=== PATIENT | female | born 1990 | race African-American/Black ===

== ENCOUNTER 2016-03-18 14:08 | Emergency (ER) | payer MEDICAID ==
--- NOTE | 2016-03-18 14:23 | ER Document Report ---
ED Medical Screen (RME) - General Stated Complaint: STRONG URINE ODOR,FREQUENT URINATION Time seen by provider: 14:22 Mode of Arrival: Ambulatory Information source: Patient Notes: 25-year-old female complaining of fishy vaginal smell with dysuria and frequency. She has had bacterial vaginosis in the past she is not sure if that' s what it is again. She's been with this partner for 6 months his ejaculate always ocampo her vagina. TRAVEL OUTSIDE OF THE [place] IN LAST 30 DAYS: No - Related Data Allergies/Adverse Reactions: No Known Allergies Allergy (Verified 12/01/15 08:21) Past Medical History Past Surgical History: Reports: Hx Cholecystectomy - Immunizations Immunizations up to date: Yes Hx Diphtheria, Pertussis, Tetanus Vaccination: Yes Physical Exam - Vital signs Vitals: Temp Pulse Resp BP Pulse Ox 98.3 F 76 14 117/66 99 03/18/16 14:19 03/18/16 14:19 03/18/16 14:19 03/18/16 14:19 03/18/16 14:19 Course - Vital Signs Vital signs: Temp Pulse Resp BP Pulse Ox 98.3 F 76 14 117/66 99 03/18/16 14:19 03/18/16 14:19 03/18/16 14:19 03/18/16 14:19 03/18/16 14:19
[2016-03-18 15:23] LABS: APPEARANCE,URINE SLIGHTLY-CLOUDY; BILIRUBIN,URINE NEGATIVE (NEGATIVE); GLUCOSE, URINE NEGATIVE (NEGATIVE); KETONES,URINE TRACE mg/dL (NEGATIVE); LEUKOCYTE ESTERASE,URINE NEGATIVE (NEGATIVE); NITRITE,URINE NEGATIVE (NEGATIVE); PROTEIN,URINE 30 mg/dL (NEGATIVE); URINE SPECIFIC GRAVITY 1.033
--- NOTE | 2016-03-18 15:27 | ER Document Report ---
ED GI/ - General Chief Complaint: Urinary Problem Stated Complaint: STRONG URINE ODOR,FREQUENT URINATION Time seen by provider: 15:24 Mode of Arrival: Ambulatory TRAVEL OUTSIDE OF THE [place] IN LAST 30 DAYS: No - HPI Patient complains to provider of: Dysuria - Pt. with recurrent UTI with c/o dysuria, frequency, and strong odor to urine. Denies vaginal d/c, abdominal pain - Related Data Allergies/Adverse Reactions: No Known Allergies Allergy (Verified 12/01/15 08:21) Past Medical History - General Information source: Patient - Social History Smoking Status: Never Smoker Cigarette use (# per day): No Chew tobacco use (# tins/day): No Smoking Education Provided: No Family History: DM, Hypertension, Malignancy Renal/ Medical History: Denies: Hx Peritoneal Dialysis Past Surgical History: Reports: Hx Cholecystectomy - Immunizations Immunizations up to date: Yes Hx Diphtheria, Pertussis, Tetanus Vaccination: Yes Review of Systems - Review of Systems Constitutional: No symptoms reported Cardiovascular: No symptoms reported Respiratory: No symptoms reported Gastrointestinal: No symptoms reported Genitourinary: See HPI, Dysuria, Frequency -: Yes All other systems reviewed and negative Physical Exam - Vital signs Vitals: Temp Pulse Resp BP Pulse Ox 98.3 F 76 14 117/66 99 03/18/16 14:19 03/18/16 14:19 03/18/16 14:19 03/18/16 14:19 03/18/16 14:19 - General General appearance: Appears well In distress: None - Respiratory Respiratory status: No respiratory distress Breath sounds: Normal - Cardiovascular Rhythm: Regular Heart sounds: Normal auscultation - Abdominal Inspection: Normal Tenderness: Nontender Course - Vital Signs Vital signs: Temp Pulse Resp BP Pulse Ox 98.3 F 76 14 117/66 99 03/18/16 14:20 03/18/16 14:20 03/18/16 14:20 03/18/16 14:20 03/18/16 14:20 - Laboratory Laboratory results interpreted by me: 03/18/16 15:00 Urine Protein 30 H Urine Ketones TRACE H Urine Blood MODERATE H Urine Urobilinogen 2.0 H Discharge - Discharge Clinical Impression: UTI (urinary tract infection) Qualifiers: Urinary tract infection type: acute cystitis Hematuria presence: without hematuria Qualified Code(s): N30.00 - Acute cystitis without hematuria Condition: Stable Disposition: HOME, SELF-CARE Instructions: Trimethoprim-Sulfa ([facility]), Urinary Tract Infection ([facility]) Additional Instructions: rest, continue current meds, return if worse Prescriptions: Sulfamethoxazole/Trimethoprim [Bactrim Ds Tablet] 1 each PO BID #10 tablet Referrals: DAYANA MARTINEZ MD [ACTIVE STAFF] - Follow up as needed
[2016-03-18 16:48] VITALS: BP 115/72
[2016-03-18 17:42] LABS: CHLAM PCR NOT DETECTED (NOT DETECT)
== END 2016-03-18 16:48 | disposition home or self-care (01) ==
LOC: ER 14:08
DX: N30.00 Acute cystitis without hematuria (principal); R30.0 Dysuria; Z87.440 Personal history of urinary (tract) infections; Z90.49 Acquired absence of other specified parts of digestive tract
CPT/HCPCS: 81001; 81025; 87086; 87491; 87591; 99283

== ENCOUNTER 2016-05-07 16:09 | Emergency (ER) | payer MEDICAID ==
[2016-05-07] MEDS ORDERED: ACETAMINOPHEN 325 MG TABLET PO ONE (16:46)
[2016-05-07] MEDS ORDERED: DIPHENHYDRAMINE HCL 25 MG CAPSULE PO ONE (16:46)
[2016-05-07 17:16] LABS: APPEARANCE,URINE CLEAR; BILIRUBIN,URINE NEGATIVE (NEGATIVE); GLUCOSE, URINE NEGATIVE (NEGATIVE); KETONES,URINE NEGATIVE (NEGATIVE); LEUKOCYTE ESTERASE,URINE NEGATIVE (NEGATIVE); NITRITE,URINE NEGATIVE (NEGATIVE); PROTEIN,URINE NEGATIVE (NEGATIVE); URINE SPECIFIC GRAVITY 1.025; UROBILINOGEN,URINE NEGATIVE mg/dL (<2.0)
[2016-05-07 18:58] LABS: CHLAM PCR DETECTED (NOT DETECT)
[2016-05-07] MEDS ORDERED: CEFTRIAXONE INJ 250 MG VIAL IM ONE (19:11)
[2016-05-07] MEDS ORDERED: LIDOCAINE 1% INJ-PF (10 MG/ML) 30 ML SDV INJ ONE (19:11)
[2016-05-07] MEDS ORDERED: AZITHROMYCIN 1 GM SUSP PACKET PO ONE (19:11)
[2016-05-07] MEDS ORDERED: METOCLOPRAMIDE HCL 10 MG TABLET PO ONE (19:12)
--- NOTE | 2016-05-07 19:16 | ER Document Report ---
HPI - HPI Pain Level: 0 Context: Patient is a 25-year-old female presents emergency Department complaining of suprapubic pain. Patient states that she cannot quite reticulate for how long its been there that she believes for over the past week. She denies any discharge, itching, burning, vaginal bleeding. She states she came here today to be evaluated for an STD She is concerned that her cheating on her. ROS positive for Mild headache denies any other past medical history - REPRODUCTIVE Reproductive: DENIES: : - DERM Skin Color: Normal Past Medical History - Social History Smoking Status: Never Smoker Frequency of alcohol use: None Drug Abuse: None Family History: DM, Hypertension, Malignancy Patient has suicidal ideation: No Patient has homicidal ideation: No Renal/ Medical History: Denies: Hx Peritoneal Dialysis Past Surgical History: Reports: Hx Cholecystectomy - Immunizations Immunizations up to date: Yes Hx Diphtheria, Pertussis, Tetanus Vaccination: Yes Vertical Provider Document - CONSTITUTIONAL Agree With Documented VS: Yes Exam Limitations: No Limitations General Appearance: WD/WN, No Apparent Distress - INFECTION CONTROL TRAVEL OUTSIDE OF THE [place] IN LAST 30 DAYS: No - HEENT HEENT: Atraumatic, Normal ENT Exam, Normocephalic, PERRLA - RESPIRATORY Respiratory: Breath Sounds Normal, No Respiratory Distress, Chest Non-Tender. negative: Rales, Rhonchi, Wheezing O2 Sat by Pulse Oximetry: 98 - CARDIOVASCULAR Cardiovascular: Regular Rate, Regular Rhythm, No Murmur - GI/ABDOMEN Gastrointestinal: Abdomen Soft, Abdomen Non-Tender, Abdomen Tender - Suprapubic tenderness, No Organomegaly, Normal Bowel Sounds. negative: Abdominal Guarding - REPRODUCTIVE Female Genitalia: Normal Inspection Notes: FEMALE : Normal external exam. No evidence of lesions, lacerations, bruising or vesicles. Speculum exam normal cervix closed. Evidence of vaginal discharge without odor. No evidence of lesions. No vaginal bleeding. Bimanual exam normal no cervical motion tenderness. No adnexal mass or adnexal tenderness. - NEURO Level of Consciousness: Awake, Alert, Appropriate Motor/Sensory: No Motor Deficit, No Sensory Deficit - DERM Integumentary: Warm, Dry, No Rash Course - Re-evaluation Re-evalutation: 05/07/16 19:27 Patient's urinalysis did not reveal any evidence of urinary tract infection, no evidence of bacterial vaginosis or Trichomonas. Patient did test positive for chlamydia. Treated with by mouth azithromycin and Rocephin. Discharged home. Instructions not having sex for the next 7 days and to have her partner evaluated at the health department. - Vital Signs Vital signs: Temp Pulse Resp BP Pulse Ox 98.4 F 78 12 126/77 H 98 05/07/16 16:22 05/07/16 16:22 05/07/16 16:22 05/07/16 16:22 05/07/16 16:22 - Laboratory Laboratory results interpreted by me: 05/07/16 05/07/16 16:52 17:15 Urine Blood SMALL H Chlamydia DNA (PCR) DETECTED H Discharge - Discharge Clinical Impression: Chlamydia Condition: Good Disposition: HOME, SELF-CARE Instructions: Chlamydia ([facility])
[2016-05-07 19:53] VITALS: BP 124/68
== END 2016-05-07 19:53 | disposition home or self-care (01) ==
LOC: ER 16:09
DX: A74.9 Chlamydial infection, unspecified (principal); R10.9 Unspecified abdominal pain
CPT/HCPCS: 99283; 96372; 87210; 81025; 81001; 87491; 87591; J3490 ×4; Q0144; J0696

== ENCOUNTER 2016-08-02 21:09 | Emergency (ER) | payer MEDICAID ==
[2016-08-02 21:22] VITALS: BP 130/87
[2016-08-02 22:18] LABS: APPEARANCE,URINE SLIGHTLY-CLOUDY; BILIRUBIN,URINE NEGATIVE (NEGATIVE); GLUCOSE, URINE NEGATIVE (NEGATIVE); KETONES,URINE NEGATIVE (NEGATIVE); LEUKOCYTE ESTERASE,URINE TRACE (NEGATIVE); NITRITE,URINE NEGATIVE (NEGATIVE); PROTEIN,URINE NEGATIVE (NEGATIVE); URINE SPECIFIC GRAVITY 1.028
[2016-08-02] MEDS ORDERED: AZITHROMYCIN 250 MG TABLET PO ONE (22:45)
[2016-08-02] MEDS ORDERED: CEFTRIAXONE INJ 250 MG VIAL IM ONE (22:45)
--- NOTE | 2016-08-02 22:46 | ER Document Report ---
ED GI/ - General Chief Complaint: STD Exposure Stated Complaint: POSSIBLE STD Time Seen by Provider: 08/02/16 21:40 Mode of Arrival: Ambulatory Information source: Patient TRAVEL OUTSIDE OF THE [place] IN LAST 30 DAYS: No - HPI Patient complains to provider of: Vaginal discharge Onset: This morning Timing/Duration: Sudden Quality of pain: No pain Sexual history: Unprotected intercourse Associated symptoms: Vaginal discharge Exacerbated by: Denies Relieved by: Denies Similar symptoms previously: Yes Recently seen / treated by doctor: No Notes: 08/03/16 00:23 Patient is a 26-year-old female who presents to the emergency room requesting sexually transmitted disease testing, states her boyfriend who she has had recent unprotected intercourse with, tested positive for chlamydia at the health department today and was currently being treated, reports some creamy vaginal discharge, but denies burning or itching, she does have a history of previous Chlamydia infection - Related Data Allergies/Adverse Reactions: No Known Allergies Allergy (Verified 05/07/16 16:22) Past Medical History - General Information source: Patient - Social History Smoking Status: Never Smoker Family History: DM, Hypertension, Malignancy Renal/ Medical History: Denies: Hx Peritoneal Dialysis Past Surgical History: Reports: Hx Cholecystectomy - Immunizations Immunizations up to date: Yes Hx Diphtheria, Pertussis, Tetanus Vaccination: Yes Review of Systems - Review of Systems Constitutional: No symptoms reported EENT: No symptoms reported Cardiovascular: No symptoms reported Respiratory: No symptoms reported Gastrointestinal: No symptoms reported Genitourinary: No symptoms reported Female Genitourinary: See HPI Musculoskeletal: No symptoms reported Skin: No symptoms reported Hematologic/Lymphatic: No symptoms reported Neurological/Psychological: No symptoms reported -: Yes All other systems reviewed and negative Physical Exam - Vital signs Vitals: Temp Pulse Resp BP Pulse Ox 98.1 F 73 20 130/87 H 100 08/02/16 21:19 08/02/16 21:19 08/02/16 21:19 08/02/16 21:19 08/02/16 21:19 - Notes Notes: - General General appearance: Appears well, Alert In distress: None - HEENT Head: Normocephalic, Atraumatic Eyes: Normal Conjunctiva: Normal Extraocular movements intact: Yes Eyelashes: Normal Pupils: PERRL - Respiratory Respiratory status: No respiratory distress - Cardiovascular Rhythm: Regular - Abdominal Inspection: Normal - Back Back: Normal - Extremities General upper extremity: Normal inspection General lower extremity: Normal inspection - Neurological Neuro grossly intact: Yes Orientation: AAOx4 [place] Coma Scale Eye Opening: Spontaneous [place] Coma Scale Verbal: Oriented [place] Coma Scale Motor: Obeys Commands [place] Coma Scale Total: 15 - Psychological Associated symptoms: Normal affect, Normal mood - Skin Skin Temperature: Warm Skin Moisture: Dry Skin Color: Normal Course - Re-evaluation Re-evalutation: 08/03/16 00:24 Patient with signs and symptoms consistent with sexually transmitted disease, boyfriend recently tested positive for chlamydia, she was provided with Rocephin and azithromycin in the emergency room, she did not want to wait in the emergency room for test results so a call was placed at 12:24 AM informing patient of her positive chlamydia result, she was advised to follow-up with OB/ [facility] or her primary care provider or return if any additional concerns, patient acknowledges understanding and agreement with this plan - Vital Signs Vital signs: Temp Pulse Resp BP Pulse Ox 98.1 F 73 20 130/87 H 100 08/02/16 21:19 08/02/16 21:19 08/02/16 21:19 08/02/16 21:19 08/02/16 21:19 - Laboratory Laboratory results interpreted by me: 08/02/16 08/02/16 21:56 21:56 Urine Urobilinogen 2.0 H Ur Leukocyte Esterase TRACE H Chlamydia DNA (PCR) DETECTED H Discharge - Discharge Clinical Impression: STD exposure Condition: Stable Disposition: HOME, SELF-CARE Instructions: Chlamydia ([facility]), Gonorrhea ([facility]) Additional Instructions: Follow up with your primary care provider in one to 2 days. Return to the emergency room immediately if symptoms worsen or any additional concerns.
[2016-08-02] MEDS ORDERED: LIDOCAINE 1% INJ-PF (10 MG/ML) 30 ML SDV ONE (22:50)
[2016-08-02 23:47] LABS: CHLAM PCR DETECTED (NOT DETECT)
== END 2016-08-02 23:10 | disposition home or self-care (01) ==
LOC: ER 21:09
DX: Z20.2 Contact with and (suspected) exposure to infections with a predominantly sexual mode of transmission (principal)
CPT/HCPCS: 99283; 96372; 81025; 81001; 87491; 87591; Q0144; J0696

== ENCOUNTER 2016-12-24 15:00 | Emergency (ER) | payer MEDICAID ==
[2016-12-24 15:12] VITALS: BP 126/75
[2016-12-24 16:19] LABS: APPEARANCE,URINE SLIGHTLY-CLOUDY; BILIRUBIN,URINE NEGATIVE (NEGATIVE); GLUCOSE, URINE NEGATIVE (NEGATIVE); KETONES,URINE NEGATIVE (NEGATIVE); LEUKOCYTE ESTERASE,URINE TRACE (NEGATIVE); NITRITE,URINE NEGATIVE (NEGATIVE); PROTEIN,URINE NEGATIVE (NEGATIVE); URINE SPECIFIC GRAVITY 1.033; UROBILINOGEN,URINE NEGATIVE mg/dL (<2.0)
[2016-12-24] MEDS ORDERED: CEPHALEXIN 500 MG CAPSULE PO ONE (16:51)
[2016-12-24] MEDS ORDERED: PHENAZOPYRIDINE HCL 100 MG TABLET PO ONE (16:51)
--- NOTE | 2016-12-24 16:53 | ER Document Report ---
HPI - HPI Patient complains to provider of: UTI symptoms Onset: Other - 3 days Onset/Duration: Persistent Quality of pain: Burning Pain Level: 1 Context: Patient complains of dysuria and frequency for the past 3 days. Patient denies any abdominal pain, fever or back pain. Patient denies any nausea or vomiting. Patient denies any concerns about . Patient denies any concerns about possible sexually transmitted infection Associated Symptoms: Other - Frequency, dysuria. denies: Fever Exacerbated by: Denies Relieved by: Denies Similar symptoms previously: Yes Recently seen / treated by doctor: No - ROS ROS below otherwise negative: Yes Systems Reviewed and Negative: Yes All other systems reviewed and negative - CONSTITUTIONAL Constitutional: DENIES: Fever - GASTROINTESTINAL Gastrointestinal: DENIES: Abdominal Pain, Nausea, Patient vomiting - URINARY Urinary: REPORTS: Dysuria, Frequency - REPRODUCTIVE Reproductive: DENIES: : - MUSCULOSKELETAL Musculoskeletal: DENIES: Back Pain - DERM Skin Color: Normal Skin Problems: None Past Medical History - General Information source: Patient - Social History Smoking Status: Never Smoker Frequency of alcohol use: None Drug Abuse: None Occupation: [employer] Family History: DM, Hypertension, Malignancy - Medical History Medical History: Negative Renal/ Medical History: Denies: Hx Peritoneal Dialysis Past Surgical History: Reports: Hx Cholecystectomy - Immunizations Immunizations up to date: Yes Hx Diphtheria, Pertussis, Tetanus Vaccination: Yes Vertical Provider Document - CONSTITUTIONAL Agree With Documented VS: Yes Exam Limitations: No Limitations General Appearance: WD/WN, No Apparent Distress - INFECTION CONTROL TRAVEL OUTSIDE OF THE [place] IN LAST 30 DAYS: No - HEENT HEENT: Atraumatic, Normocephalic - NECK Neck: Normal Inspection - RESPIRATORY Respiratory: Breath Sounds Normal, No Respiratory Distress O2 Sat by Pulse Oximetry: 99 - CARDIOVASCULAR Cardiovascular: Regular Rate, Regular Rhythm - GI/ABDOMEN Gastrointestinal: Abdomen Soft, Abdomen Non-Tender, No Organomegaly, Normal Bowel Sounds - BACK Back: Normal Inspection. negative: CVA Tenderness-Right, CVA Tenderness-Left - MUSCULOSKELETAL/EXTREMETIES Musculoskeletal/Extremeties: MAEW - NEURO Level of Consciousness: Awake, Alert, Appropriate Motor/Sensory: No Motor Deficit - DERM Integumentary: Warm, Dry, No Rash Course - Re-evaluation Re-evalutation: 12/24/16 16:52 Offered patient STD testing, patient declines needing any STD testing and does not have any concerns regarding this. - Vital Signs Vital signs: Temp Pulse Resp BP Pulse Ox 97.6 F 84 17 126/75 H 99 12/24/16 15:11 12/24/16 15:11 12/24/16 15:11 12/24/16 15:11 12/24/16 15:11 - Laboratory Laboratory results interpreted by me: 12/24/16 15:51 Urine Blood SMALL H Ur Leukocyte Esterase TRACE H Discharge - Discharge Clinical Impression: UTI (urinary tract infection) Qualifiers: Urinary tract infection type: site unspecified Hematuria presence: with hematuria Qualified Code(s): N39.0 - Urinary tract infection, site not specified Condition: Stable Disposition: HOME, SELF-CARE Instructions: Cephalexin ([facility]), Urinary Anesthetic Agent ([facility]), Urinary Tract Infection ([facility]) Additional Instructions: Return immediately for any new or worsening symptoms Followup with your primary care provider, call tomorrow to make a followup appointment Prescriptions: Cephalexin Monohydrate [Keflex 500 mg Capsule] 500 mg PO Q6H 5 Days capsule Phenazopyridine HCl [Pyridium 200 mg Tablet] 200 mg PO TID #15 tablet Referrals: [facility] [Provider Group] - Follow up as needed
== END 2016-12-24 17:20 | disposition home or self-care (01) ==
LOC: ER 15:00
DX: N39.0 Urinary tract infection, site not specified (principal); Z90.49 Acquired absence of other specified parts of digestive tract
CPT/HCPCS: 99283; 81001; J3490

== ENCOUNTER 2017-01-23 21:34 | Emergency (ER) | payer MEDICAID ==
[2017-01-23] MEDS ORDERED: AZITHROMYCIN 250 MG TABLET PO ONE (23:23)
[2017-01-23] MEDS ORDERED: LIDOCAINE 1% INJ-PF (10 MG/ML) 30 ML SDV INFIL ONE (23:23)
[2017-01-23] MEDS ORDERED: CEFTRIAXONE INJ 250 MG VIAL IM ONE (23:23)
--- NOTE | 2017-01-23 23:27 | ER Document Report ---
ED General - General TRAVEL OUTSIDE OF THE [place] IN LAST 30 DAYS: No - General Chief Complaint: STD Exposure Stated Complaint: POSSIBLE STD Time Seen by Provider: 01/23/17 22:54 Notes: Patient is a 26-year-old female without past medical history who presents with concerns of her DISPENSER OPERATOR contacting her and telling her that she had a positive chlamydia test. She is here requesting treatment. She denies any symptoms or concerns. She states she had the testing done as a routine physical examination. (ADRIANA GALLOWAY) - Related Data Allergies/Adverse Reactions: No Known Allergies Allergy (Verified 05/07/16 16:22) Past Medical History - General Information source: Patient - Social History Smoking Status: Never Smoker Frequency of alcohol use: None Drug Abuse: None Lives with: Spouse/Significant other Family History: DM, Hypertension, Malignancy Patient has suicidal ideation: No Patient has homicidal ideation: No Renal/ Medical History: Denies: Hx Peritoneal Dialysis Past Surgical History: Reports: Hx Cholecystectomy - Immunizations Immunizations up to date: Yes Hx Diphtheria, Pertussis, Tetanus Vaccination: Yes Review of Systems - Review of Systems Notes: Constitutional: Negative for fever. HENT: Negative for sore throat. Eyes: Negative for visual changes. Cardiovascular: Negative for chest pain. Respiratory: Negative for shortness of breath. Gastrointestinal: Negative for abdominal pain, vomiting or diarrhea. Genitourinary: Negative for dysuria. Musculoskeletal: Negative for back pain. Skin: Negative for rash. Neurological: Negative for headaches, weakness or numbness. 10 point ROS negative except as marked above and in HPI. (ADRIANA GALLOWAY) Physical Exam - Vital signs Interpretation: Normal - Vital signs Vitals: Temp Pulse Resp BP Pulse Ox 99 F 75 16 124/70 98 01/23/17 21:53 01/23/17 21:53 01/23/17 21:53 01/23/17 21:53 01/23/17 21:53 Notes: PHYSICAL EXAMINATION: GENERAL: Well-appearing, well-nourished and in no acute distress. HEAD: Atraumatic, normocephalic. EYES: sclera anicteric, conjunctiva are normal. ENT: Moist mucous membranes. NECK: Normal range of motion LUNGS: Normal work of breathing HEART: 2+ radial pulses bilaterally EXTREMITIES: no pitting or edema. No cyanosis. NEUROLOGICAL: No focal neurological deficits. Moves all extremities spontaneously and on command. PSYCH: Normal mood, normal affect. SKIN: Warm, Dry, normal turgor, no rashes or lesions noted. (ADRIANA GALLOWAY) Course - Re-evaluation Re-evalutation: 01/23/17 23:26 Patient presents after being contacted by her DISPENSER OPERATOR informing her that she had tested positive for chlamydia. She denies any active symptoms. No additional concerns. Will treat with ceftriaxone and azithromycin for empiric coverage of both gonorrhea and Chlamydia. At this time will discharge with return precautions and follow-up recommendations. Verbal discharge instructions given a the bedside and opportunity for questions given. Medication warnings reviewed. Patient is in agreement with this plan and has verbalized understanding of return precautions and the need for primary care follow-up in the next 24-72 hours. (ADRIANA GALLOWAY) - Vital Signs Vital signs: Temp Pulse Resp BP Pulse Ox 97.2 F 96 16 125/85 100 01/24/17 00:33 01/24/17 00:33 01/24/17 00:33 01/24/17 00:33 01/24/17 00:33 Discharge - Discharge Clinical Impression: STD (female), Chlamydia Condition: Good Disposition: HOME, SELF-CARE Additional Instructions: You need to use protection every time you have sex. Failure to do so can result in transmission of infections or unintended . You have been treated for an sexually transmitted infection (STI) today. All of your partners should be tested and treated as they are also likely to be infected. Please return if you develop abdominal pain, fever, persistent vomiting, or any other symptoms that are concerning to you. Referrals: KASIA LIMA MD [Primary Care Provider] - Follow up as needed
[2017-01-24 00:34] VITALS: BP 125/85
== END 2017-01-24 00:36 | disposition home or self-care (01) ==
LOC: ER 21:34
DX: A56.8 Sexually transmitted chlamydial infection of other sites (principal)
CPT/HCPCS: 99283; Q0144; J3490; J0696

== ENCOUNTER 2017-01-31 09:47 | Emergency (ER) | payer MEDICAID ==
[2017-01-31] MEDS ORDERED: CEFTRIAXONE INJ 250 MG VIAL IM ONE (10:14)
[2017-01-31] MEDS ORDERED: LIDOCAINE 1% INJ-PF (10 MG/ML) 30 ML SDV INJ ONE (10:14)
[2017-01-31] MEDS ORDERED: AZITHROMYCIN 250 MG TABLET PO ONE (10:14)
--- NOTE | 2017-01-31 10:18 | ER Document Report ---
HPI - HPI Pain Level: 0 Notes: Patient is a 26-year-old female who presents to the ED complaining of vaginal discharge that does not burn, itch, or smell. Patient was treated for chlamydia about 8 days ago and is wondering about resolution status post treatment. Patient states that she has not been sexually active since the last testing and treatment was performed. She is still eating and drinking without difficulties. She is urinating normally and having normal bowel movements. She denies any drug allergies. Patient admits to smoking but denies IV drug use. She has no other concerns or complaints at this time. Denies any headache , fever, URI, sore throat, chest pain, palpitations, syncope, cough, shortness of breath, wheeze, dyspnea, abdominal pain, nausea/vomiting/diarrhea, urinary retention, dysuria, hematuria, vaginal bleeding/cramping, loss of control of bowel or bladder, numbness/tingling, saddle anesthesia, muscle paralysis/ weakness, or rash. - ROS Notes: REVIEW OF SYSTEMS: CONSTITUTIONAL : Denies fever, chills, or sweats. Denies recent illness. EENT: Denies eye, ear, throat, or mouth pain or symptoms. Denies nasal or sinus congestion or discharge. Denies throat, tongue, or mouth swelling or difficulty swallowing. CARDIOVASCULAR: Denies chest pain. Denies palpitations or racing or irregular heart beat. RESPIRATORY: Denies cough, cold, or chest congestion. Denies shortness of breath, difficulty breathing, or wheezing. GASTROINTESTINAL: Denies abdominal pain or distention. Denies nausea, vomiting , or diarrhea. Denies blood in vomitus, stools, or per rectum. Denies black, tarry stools. Denies constipation. GENITOURINARY: Denies difficulty urinating, painful urination, burning, frequency, blood in urine, or discharge. FEMALE GENITOURINARY: see hpi MUSCULOSKELETAL: Denies back or neck pain or stiffness. Denies joint pain or swelling. SKIN: Denies rash, lesions or sores. NEUROLOGICAL: Denies dizziness or lightheadedness. Denies headache. Denies problems with gait or speech. Denies sensory loss, numbness, or tingling. Denies seizures. ALL OTHER SYSTEMS REVIEWED AND NEGATIVE. Dictation was performed using [employer] recognition software - CONSTITUTIONAL Constitutional: DENIES: Fever, Chills - EENT EENT: DENIES: Sore Throat, Ear Pain, Eye problems - NEURO Neurology: DENIES: Headache, Weakness, Vision blurred, Dizzinesss / Vertigo - CARDIOVASCULAR Cardiovascular: DENIES: Chest pain - RESPIRATORY Respiratory: DENIES: Trouble Breathing, Coughing - GASTROINTESTINAL Gastrointestinal: DENIES: Abdominal Pain, Black / Bloody Stools - URINARY Urinary: DENIES: Dysuria, Urgency, Frequency - REPRODUCTIVE Reproductive: REPORTS: Abnormal bleeding / discharge. DENIES: :, Postmenopausal - MUSCULOSKELETAL Musculoskeletal: DENIES: Extremity pain Past Medical History - Social History Smoking Status: Current Every Day Smoker Chew tobacco use (# tins/day): No Frequency of alcohol use: None Drug Abuse: None Family History: DM, Hypertension, Malignancy Patient has suicidal ideation: No Patient has homicidal ideation: No Renal/ Medical History: Denies: Hx Peritoneal Dialysis Past Surgical History: Reports: Hx Cholecystectomy - Immunizations Immunizations up to date: Yes Hx Diphtheria, Pertussis, Tetanus Vaccination: Yes Vertical Provider Document - CONSTITUTIONAL Agree With Documented VS: Yes Notes: PHYSICAL EXAMINATION: GENERAL: Well-appearing, well-nourished and in no acute distress. Eye: no redness/discharge. LUNGS: Breath sounds clear to auscultation bilaterally and equal. No wheezes rales or rhonchi. HEART: Regular rate and rhythm without murmurs ABDOMEN: Soft, nontender, nondistended abdomen. No guarding, no rebound. No masses appreciated. Normal bowel sounds present. CVA tenderness negative bilaterally. Female : No inguinal adenopathy. External genitalia without erythema, lesions , or masses. Vaginal mucosa pink. Cervix parous, pink, and with scant to no discharge. Uterus is smooth. No adnexal tenderness. Extremities: No cyanosis/clubbing/edema b/l. Peripheral pulses 2+. Capillary refill less than 3 seconds. NEUROLOGICAL: Normal speech, normal gait. Normal sensory, motor exams PSYCH: Normal mood, normal affect. SKIN: Warm, Dry, normal turgor, no rashes or lesions noted. - INFECTION CONTROL TRAVEL OUTSIDE OF THE [place] IN LAST 30 DAYS: No - RESPIRATORY O2 Sat by Pulse Oximetry: 98 Course - Re-evaluation Re-evalutation: 01/31/17 11:15 Patient is an afebrile, well-hydrated, 26-year-old female who presents the ED with subjective vaginal discharge and previous exposure to an STD. Vitals are stable. PE is otherwise unremarkable. See pelvic exam. Wet mount unremarkable. Chlamydia and gonorrhea tests are pending. Zithromax and Rocephin were given today. Urine HCG pending. Low suspicion for any acute abdomen/pelvic at this time. Patient advised that she may call back later today for her results. Recheck with your PCM in 3-5 days. Consider consult with women's clinic/health department. Return to the ED with any worsening/ concerning symptoms otherwise as reviewed in discharge. Patient is in agreement. - Vital Signs Vital signs: Temp Pulse Resp BP Pulse Ox 98.4 F 68 16 121/78 98 01/31/17 09:52 01/31/17 09:52 01/31/17 09:52 01/31/17 09:52 01/31/17 09:52 Procedures - Pelvic Exam Pelvic exam Time completed: 10:30 Cultures obtained: Yes Wet prep obtained: Yes Bimanual exam performed: Yes - negative Witnessed by: female nurse Discharge - Discharge Clinical Impression: Exposure to STD Condition: Stable Disposition: HOME, SELF-CARE Additional Instructions: Push fluids (i.e. water, cranberry juice) Proper hygenic technique Keep the skin clean Safe sexual practices with condoms everytime Tylenol/ibuprofen as needed Check in with the health department this week for further testing* Your chlamydia/Ghon test are pending and you will be notified if positive results; you may call in later today or tomorrow for the results as well Return immediately if symptoms worsen F/u with your PCM in 3-5 days for a recheck Return to the ED with any development of NIETO/fever, trouble with vision, eye redness, worsening pain, urethral discharge, urinary retention, blood in the urine, flank pain, abdominal pain, n/v, Chest Pain, shortness of breath, joint pains, trouble breathing, or any other worsening/concerning symptoms as needed otherwise. [facility]errals: [facility] - Follow up as needed [facility] - Follow up in 3-5 days
[2017-01-31 11:31] LABS: RBCS (WET MOUNT) 3+ RBCS SEEN; T.VAGINALIS (WET MOUNT) NO TRICHOMONAS SEEN; WBCS (WET MOUNT) 1+ WBCS SEEN; YEAST (WET MOUNT) NO YEAST SEEN
[2017-01-31 12:01] VITALS: BP 132/77
[2017-01-31 12:59] LABS: CHLAM PCR NOT DETECTED (NOT DETECT); GON PCR NOT DETECTED (NOT DETECT)
== END 2017-01-31 12:01 | disposition home or self-care (01) ==
LOC: ER 09:47
DX: Z20.2 Contact with and (suspected) exposure to infections with a predominantly sexual mode of transmission (principal); F17.200 Nicotine dependence, unspecified, uncomplicated
CPT/HCPCS: 99283; 96372; 87210; 81025; 87491; 87591; Q0144; J3490; J0696

== ENCOUNTER 2017-03-25 07:24 | Emergency (ER) | payer SELFPAY ==
--- NOTE | 2017-03-25 07:59 | ER Document Report ---
ED General - General Chief Complaint: Vaginal Discharge Stated Complaint: VAGINAL ISSUES Time Seen by Provider: 03/25/17 07:50 Mode of Arrival: Ambulatory Information source: Patient TRAVEL OUTSIDE OF THE [place] IN LAST 30 DAYS: No - HPI Notes: 26-year-old female presents today with complaints of a fishy odor with itching that has been occurring for the last week. Patient denies any vaginal pain, vaginal bleeding or abdominal pain. Denies any fevers or chills. Patient is sexually active, states she uses condoms with every sexual encounter with the same partner. Patient is not taking any control. Last menstrual period was February 19, 2017. Patient was treated for chlamydia in January 2017 twice she did not wait patient sexual intercourse her partner. Denies any chest pain , shortness of breath, nausea, vomiting, diarrhea. Drinking and eating without issues. Reports she had a previous history of BV when she was "years ago" - Related Data Allergies/Adverse Reactions: No Known Allergies Allergy (Verified 03/25/17 07:58) Past Medical History - General Information source: Patient - Social History Smoking Status: Unknown if Ever Smoked Family History: DM, Hypertension, Malignancy Renal/ Medical History: Denies: Hx Peritoneal Dialysis Past Surgical History: Reports: Hx Cholecystectomy - Immunizations Immunizations up to date: Yes Hx Diphtheria, Pertussis, Tetanus Vaccination: Yes Review of Systems - Review of Systems Constitutional: No symptoms reported EENT: No symptoms reported Cardiovascular: No symptoms reported Respiratory: No symptoms reported Gastrointestinal: No symptoms reported Genitourinary: No symptoms reported Female Genitourinary: See HPI Musculoskeletal: No symptoms reported Skin: No symptoms reported Hematologic/Lymphatic: No symptoms reported Neurological/Psychological: No symptoms reported Physical Exam - Vital signs Vitals: Temp Pulse Resp BP Pulse Ox 98.4 F 91 18 126/67 H 97 03/25/17 07:32 03/25/17 07:32 03/25/17 07:32 03/25/17 07:32 03/25/17 07:32 - Notes Notes: PHYSICAL EXAMINATION: GENERAL: Well-appearing, well-nourished and in no acute distress. HEAD: Atraumatic, normocephalic. EYES: Pupils equal round and reactive to light, extraocular movements intact, conjunctiva are normal. ENT: Nares patent, oropharynx clear without exudates. Moist mucous membranes. NECK: Normal range of motion, supple without lymphadenopathy LUNGS: Breath sounds clear to auscultation bilaterally and equal. No wheezes rales or rhonchi. HEART: Regular rate and rhythm without murmurs ABDOMEN: Soft, nontender, nondistended abdomen. No guarding, no rebound. No masses appreciated. Female : External labia without any lesions. Patient refused an internal exam. Musculoskeletal: Normal range of motion, no pitting or edema. No cyanosis. NEUROLOGICAL: Cranial nerves grossly intact. Normal speech, normal gait. Normal sensory, motor exams PSYCH: Normal mood, normal affect. SKIN: Warm, Dry, normal turgor, no rashes or lesions noted. Course - Re-evaluation Re-evalutation: Rechecked the patient who is resting comfortably. On re-exam, patient is symptomatically improved. Discussed the results of the labs as well as the diagnosis at great length. Discussed the need to return to the ER for any new or worsening sx. Patient understands to take the Rx as directed. All questions answered by this provider. Patient agreed with plan of care and verbalized understanding of plan of care. Patient comfortable with the decision to go home. Patient treated with azithromycin 1 g and Rocephin 250 mg IM for treatment of chlamydia and gonorrhea. Do not engage in sexual intercourse for 7-10 days after treatment. Your partner needs to be treated as well so you are not reinfected. Pt verbalizes that understands the risks that come with having unprotected sex. discussed safe sex, using protection. pt was tx'd for G/C at this visit. advised to have protected sex always, go to PCP of the Health Dept for further blood testing for HIV, hepatitis C, etc. Pt verbalized understanding of these instructions and agreed with plan of care. - Vital Signs Vital signs: Temp Pulse Resp BP Pulse Ox 98.4 F 91 18 126/67 H 97 03/25/17 07:32 03/25/17 07:32 03/25/17 07:32 03/25/17 07:32 03/25/17 07:32 - Laboratory Laboratory results interpreted by me: 03/25/17 08:40 Urine Blood SMALL H Urine Urobilinogen 4.0 H Ur Leukocyte Esterase TRACE H Discharge - Discharge Clinical Impression: Bacterial vaginal infection, Concern about STD in female without diagnosis, UTI (urinary tract infection) Condition: Good Disposition: HOME, SELF-CARE Instructions: Vaginosis, Bacterial ([facility]), Urinary Tract Infection ([facility]), Nitrofurantoin ([facility]) Additional Instructions: Your exam shows that you have vaginitis, a vaginal infection. The infection can be caused by a many different organisms, including trichomonas or Gardnerella. The usual symptoms are vaginal irritation and discharge. The treatment is usually antibiotics such as Flagyl. Laboratory tests can determine which germ is responsible. Use the medication as prescribed. Because this infection can be transmitted sexually, your sexual partner may need to be checked and treated also. If your physician has not discussed this with you, please check before resuming sexual relations. If a culture shows gonorrhea or chlamydia, the infection must be reported to the health department. Call the doctor if you develop pelvic pain, fever, or problems with urination, or if you don't improve as expected. VAGINOSIS, BACTERIAL: Your exam shows you have bacterial vaginosis. This condition is due to an overgrowth of bacteria in the vagina. Symptoms may include vaginal itching or pain, a smelly discharge, and sometimes burning with urination. Normally this is not transmitted by sexual contact. Vaginosis can be treated with oral or topical antibiotics. Metronidazole ( Flagyl) pills are usually effective. Topical vaginal creams include Cleocin and Metro-Gel. You should avoid sexual contact until your symptoms are all better. Call the doctor if you develop pelvic pain, fever, or problems with urination, or if you don't improve as expected. METRONIDAZOLE: Metronidazole (Flagyl) has been prescribed. This medication is used to kill a type of bacteria called anaerobes, and protozoan parasites such as trichomonas and Giardia. Flagyl often causes a metallic taste in the mouth and mild nausea. Do not use alcohol in any form with Flagyl (including alcohol in medication elixirs). Flagyl interacts with alcohol to cause flushing, palpitations, headache, stomach cramps, and vomiting. Do not use Flagyl if you are taking Antabuse (disulfiram). Call the doctor at once if you develop rash, shortness of breath, itching, or lightheadedness. you were treated with azithromycin 1 g and Rocephin 250 mg IM for treatment of chlamydia and gonorrhea. Do not engage in sexual intercourse for 7-10 days after treatment. Your partner needs to be treated as well so you are not reinfected. go to PCP of the Health Dept for further blood testing for HIV, hepatitis C, etc. Pt verbalized understanding of these instructions and agreed with plan of care. FOLLOW-UP CARE: If you have been referred to a physician for follow-up care, call the physician s office for an appointment as you were instructed or within the next two days. If you experience worsening or a significant change in your symptoms, notify the physician immediately or return to the Emergency Department at any time for re-evaluation.s with urination, or if you don't improve as expected. Follow up with your PCP as well as the health department for further evaluation if needed. Return immediately for any new or worsening symptoms. Follow up with primary care provider, call tomorrow to make followup appointment. Prescriptions: Metronidazole [Flagyl] 500 mg PO BID #14 tablet Nitrofurantoin Monohyd/M-Cryst [Macrobid 100 mg Capsule] 100 mg PO BID #14 capsule Referrals: LIZZIE JOEL MD [ACTIVE STAFF] - Follow up in 1 week LORI RICHEY MD [COMMUNITY BASED STAFF] - Follow up in 1 week
[2017-03-25 09:16] LABS: BACTERIA (WET MOUNT) 4+ BACTERIA SEEN; EPITHELIALS (WET MOUNT) 4+ EPITHELIALS SEEN; T.VAGINALIS (WET MOUNT) NO TRICHOMONAS SEEN; WBCS (WET MOUNT) 3+ WBCS SEEN; YEAST (WET MOUNT) NO YEAST SEEN
[2017-03-25 09:25] LABS: APPEARANCE,URINE SLIGHTLY-CLOUDY; BILIRUBIN,URINE NEGATIVE (NEGATIVE); COLOR,URINE YELLOW; GLUCOSE, URINE NEGATIVE (NEGATIVE); KETONES,URINE NEGATIVE (NEGATIVE); LEUKOCYTE ESTERASE,URINE TRACE (NEGATIVE); NITRITE,URINE NEGATIVE (NEGATIVE); PROTEIN,URINE NEGATIVE (NEGATIVE); URINE SPECIFIC GRAVITY 1.029
[2017-03-25] MEDS ORDERED: AZITHROMYCIN 1 GM SUSP PACKET PO ONE (09:33)
[2017-03-25] MEDS ORDERED: CEFTRIAXONE INJ 250 MG VIAL IM ONE (09:33)
[2017-03-25] MEDS ORDERED: LIDOCAINE 1% INJ-PF (10 MG/ML) 30 ML SDV INJ ONE (09:33)
[2017-03-25 10:17] VITALS: BP 129/79
== END 2017-03-25 10:16 | disposition home or self-care (01) ==
LOC: ER 07:24
DX: N76.0 Acute vaginitis (principal); B96.89 Other specified bacterial agents as the cause of diseases classified elsewhere; N39.0 Urinary tract infection, site not specified; Z20.2 Contact with and (suspected) exposure to infections with a predominantly sexual mode of transmission
CPT/HCPCS: 99283; 96372; 87086; 87210; 87088; 81001; J3490; Q0144; J0696

== ENCOUNTER 2017-05-24 13:11 | Emergency (ER) | payer SELFPAY ==
[2017-05-24] MEDS ORDERED: PREDNISONE 20 MG TABLET PO ONE (14:22)
--- NOTE | 2017-05-24 14:28 | ER Document Report ---
ED Allergic Reaction - General Chief Complaint: Allergic Reaction Stated Complaint: POSSIBLE ALLERGIC REACTION Time Seen by Provider: 05/24/17 14:07 Mode of Arrival: Ambulatory Information source: Patient TRAVEL OUTSIDE OF THE [place] IN LAST 30 DAYS: No - HPI Patient complains to provider of: Rash Notes: Patient is here with complaints of rash and itching. She believes that she is having an allergic reaction. Patient states that she had an IUD placed last week and she is concerned that she is having an allergic reaction to the IUD. She complains of itching, bumps, burning to her arms upper chest and left axilla. She denies any rash anywhere else. She denies any difficulty breathing or swallowing. No tongue or lip swelling. She denies any nausea, vomiting, diarrhea. No fever. She denies any chronic medical conditions. She denies having diabetes. She states that she did recently buy a new shirt, and also recently changed her laundry detergent, but does not believe that either of those are the source of her allergic reaction, she is convinced that it is the IUD that she had placed last week. - Related Data Allergies/Adverse Reactions: No Known Allergies Allergy (Verified 05/24/17 14:00) Past Medical History - Social History Smoking Status: Never Smoker Chew tobacco use (# tins/day): No Frequency of alcohol use: None Drug Abuse: None Family History: DM, Hypertension, Malignancy Patient has suicidal ideation: No Patient has homicidal ideation: No Renal/ Medical History: Denies: Hx Peritoneal Dialysis Past Surgical History: Reports: Hx Cholecystectomy - Immunizations Immunizations up to date: Yes Hx Diphtheria, Pertussis, Tetanus Vaccination: Yes Review of Systems - Review of Systems -: Yes All other systems reviewed and negative Physical Exam - Vital signs Vitals: Temp Pulse Resp BP Pulse Ox 98.2 F 76 15 117/74 97 05/24/17 13:17 05/24/17 13:17 05/24/17 13:17 05/24/17 13:17 05/24/17 13:17 - Notes Notes: GENERAL: alert, cooperative, nontoxic, no distress. HEAD: normocephalic, atraumatic EYES: conjunctiva pink without discharge, no external redness or swelling. EARS: no external swelling, no external redness NOSE: atraumatic, no external swelling MOUTH/THROAT: mucous membranes moist and pink. No lip or tongue swelling. Posterior pharynx is normal. No trismus or drooling. Voice is normal. NECK: soft, supple, full range of motion, no meningismus. CHEST: no distress, lungs clear and equal throughout. No wheezing, rales, rhonchi. CARDIAC: regular rate and rhythm, no murmur, normal capillary refill, normal pulses. BACK: full range of motion, no CVA tenderness. EXTREMITIES: full range of motion of all extremities. No redness, no swelling. NEURO: alert and oriented 3, no focal deficits, full range of motion of all extremities. PYSCH: appropriate mood, affect. Patient is cooperative. SKIN: pink, warm, dry, few small papular lesions to the upper chest and left axilla. There are a few areas of redness to the arms. No vesicular lesions. No petechiae. No urticarial lesions.. Course - Re-evaluation Re-evalutation: 05/24/17 14:26 Patient is nontoxic appearing with stable vitals. The patient is here with complaints of possible allergic reaction. She complained of itching and small bumps to her upper chest as well as her arms. She denies any rash anywhere else. She does complain of this itching and burning. She took some Benadryl prior to her arrival and states that symptoms have improved. She had an IUD placed last week and she is convinced that this is an allergic reaction to the IUD. She also reports that she has had recent change in her laundry detergent as well as bought a new shirt. Fact that this is only involving her upper body makes me think that this is more likely a contact type dermatitis more than a systemic allergic reaction, but the treatment will be the same. She was instructed to continue taking Benadryl as needed for itching and burning. I will prescribe her prednisone. She is instructed to contact whoever put her IUD and and inform them of her symptoms to see if they believe this is an allergic reaction to the IUD to see if it needs to be removed. This point she has no systemic symptoms or signs of anaphylaxis. She can be discharged home. She is instructed to follow-up sooner if she develops any worsening symptoms, high fever, persistent vomiting, difficulty breathing or swallowing, or for any further concerns. The patient's emergency department workup and current diagnosis were explained to the patient and or family. Follow-up instructions were provided. Medications if prescribed were discussed. Instructions for when to return to the emergency department including specific worrisome symptoms were discussed with the patient and/or family. - Vital Signs Vital signs: Temp Pulse Resp BP Pulse Ox 98.2 F 76 15 117/74 97 05/24/17 13:17 05/24/17 13:17 05/24/17 13:17 05/24/17 13:17 05/24/17 13:17 Discharge - Discharge Clinical Impression: Allergic reaction Qualifiers: Encounter type: initial encounter Qualified Code(s): T78.40XA - Allergy, unspecified, initial encounter Condition: Stable Disposition: HOME, SELF-CARE Instructions: Acute Allergic Reaction ([facility]), Family Physicians / Practices Additional Instructions: Take medications as prescribed. Continue taking Benadryl as needed for itching and burning. Drink plenty of fluids. Contact who placed her IUD to inform them of your current symptoms. Follow-up sooner for worsening symptoms, high fever, persistent vomiting, tongue or lip swelling, difficulty breathing or swallowing, or for any further concerns. Prescriptions: Prednisone [Deltasone 20 mg Tablet] 3 tab PO DAILY 5 Days tablet Forms: Smoking Cessation Education Referrals: [facility] [Provider Group] - Follow up as needed
[2017-05-24 14:44] VITALS: BP 122/72
== END 2017-05-24 14:43 | disposition home or self-care (01) ==
LOC: ER 13:11
DX: R21 Rash and other nonspecific skin eruption (principal); T78.40XA Allergy, unspecified, initial encounter; X58.XXXA Exposure to other specified factors, initial encounter; Z97.5 Presence of (intrauterine) contraceptive device; Z90.49 Acquired absence of other specified parts of digestive tract
CPT/HCPCS: 99283; J7512